=== PATIENT | male | born 1980 | race Caucasian/White ===

== ENCOUNTER 2022-06-27 01:11 | Emergency (ER) | payer SELFPAY ==
[2022-06-27] MEDS ORDERED: Haloperidol Lactate 5 MG/ML SDV IVPUSH ONE (01:33)
[2022-06-27] MEDS ORDERED: diphenhydrAMINE 50 MG/ML SDV IVPUSH ONE (01:33)
[2022-06-27] MEDS ORDERED: Sodium Chloride 0.9% 1,000 ML IV ONE (01:34)
== END 2022-06-27 03:30 | disposition home or self-care (01) ==
LOC: JP.ED 01:11
DX: G43.909 Migraine, unspecified, not intractable, without status migrainosus (principal); Z88.1 Allergy status to other antibiotic agents
CPT/HCPCS: 96361; 96374; 96375; 99283; J1200; J1630; J7030